=== PATIENT | male | born 1985 | race African-American/Black ===

== ENCOUNTER 2018-08-09 17:49 | Emergency (ER) | payer OTHER ==
[~2018-08-09] VITALS: Ht 182.9 cm; Wt 155.1 kg
[~2018-08-09 17:49] MED LIST: CARISOPRODOL 3350 MG PO; IBUPROFEN 800800 M1 PO; NORCO 5-325 TA1 EACH PO; ULTRAM 50MG TAB50 MG PO
[2018-08-09 19:23] LABS: CALCIUM 9.1 mg/dL (8.5-10.1); CREATININE 1.1 mg/dL (0.7-1.3); POTASSIUM 3.9 mmol/L (3.5-5.1)
[2018-08-09] MEDS ORDERED: NORCO 10-325 T1 EACH PO (21:21)
[2018-08-09] MEDS ORDERED: CRUTCHES MISCELL (21:25)
[2018-08-09 22:08] VITALS: BP 109/64
== END 2018-08-09 22:10 | disposition home or self-care (01) ==
LOC: ER 17:49
PROVIDERS: Physician Assistant
DX: S89.82XA Other specified injuries of left lower leg, initial encounter (principal); J45.909 Unspecified asthma, uncomplicated; W01.0XXA Fall on same level from slipping, tripping and stumbling without subsequent striking against object, initial encounter; Y92.89 Other specified places as the place of occurrence of the external cause; Y93.61 Activity, american tackle football; Y99.8 Other external cause status

== ENCOUNTER 2018-10-10 10:31 | Inpatient (IN) | payer OTHER ==
[~2018-10-10] VITALS: Ht 185.4 cm; Wt 160.1 kg
[~2018-10-10 10:31] MED LIST changes: +CRUTCHES MISCELL; +NORCO 10-325 T1 EACH PO
[2018-10-10 10:32] VITALS: BP 154/88
[2018-10-10 10:57] LABS: ABSOLUTE NEUTROPHILS 9.1 thou/uL (1.4-8.2); BASOPHILS 0.6 % (0.0-2.0); EOSINOPHILS 2.7 % (0.0-3.0); HEMATOCRIT 41.3 % (42.0-52.0); HEMOGLOBIN 13.8 gm/dL (14.0-18.0); LYMPHOCYTES 10.5 % (24.0-44.0); MCH 25.5 pg (26.0-34.0); MCHC 33.5 g/dL (28.0-37.0); MONOCYTES 10.4 % (1.0-8.0); PLATELET COUNT 231 thou/uL (150-400); POLYS 75.8 % (36.0-66.0); RBC 5.43 mil/uL (4.50-6.00)
[2018-10-10] MEDS ORDERED: VENTOLIN HFA 1818 GM INH (11:01)
[2018-10-10 11:08] LABS: CALCIUM 9.1 mg/dL (8.5-10.1); CREATININE 1.3 mg/dL (0.7-1.3); POTASSIUM 3.9 mmol/L (3.5-5.1)
[2018-10-10 11:13] LABS: ALBUMIN 3.9 g/dL (3.4-5.0); TOTAL BILIRUBIN 0.3 mg/dL (<0.1-1.0); TOTAL PROTEIN 8.1 g/dL (6.4-8.2)
[2018-10-10 13:53] VITALS: BP 164/97
[2018-10-10 16:50] VITALS: BP 155/68
[2018-10-10 16:56] VITALS: BP 144/86
--- NOTE | 2018-10-10 17:38 | NUR ---
PT ARRIVED TO THE UNIT AT APPROX 1645 BY ER STAFF WITH ALL BELONGINGS. PT ALERT AND ORIENTED, VSS, 3L O2. PT UP SBA, STEADY GAIT. ADMISSION COMPLETED, TELE PUT ON, ADMIT STRIP PRINTED AND DOCUMENTED. PT C/O PAIN IN CHEST FROM COUGHING, WILL MANAGE PER ORDERS. PT DENIES CONCERNS AT THIS TIME. WILL ACKNOWLEDGE AND IMPLEMENT FURTHER ORDERS. CONTINUING TO MONITOR.
--- NOTE | 2018-10-10 18:55 | NUR ---
PT CONTINUES TO BE ALERT AND ORIENTED, VSS, C/O PAIN, WILL MANAGE WITH MEDS PER JUL. COUGH MED ORDERED PER PHYSICIAN TO MANAGE COUGH. O2 SATS WNL ON 3L, NO S/SX OF CARD OR RESP DISTRESS NOTED. PT SAFETY INFO REGARDING TELEMETRY INTERFERENCE DISCUSSED WITH PT, COMMUNICATES UNDERSTANDING. PT DENIES CONCERNS AT THIS TIME. WILL CONTINUE TO MONITOR AND FOLLOW POC.
[2018-10-10 20:00] VITALS: BP 138/75
[2018-10-11 00:09] VITALS: BP 170/75
[2018-10-11 04:00] VITALS: BP 160/68
--- NOTE | 2018-10-11 05:50 | NUR ---
PATIENT ALERT AND ORIENTED X4. C/O PAIN IN CHEST AND UPPER ABD FROM COUGHING. HAS GENERALIZED EDEMA. UP TO BATHROOM BY SELF. SLEPT OFF AND ON DURING NIGHT.
[2018-10-11 07:50] VITALS: BP 149/77
[2018-10-11 11:35] VITALS: BP 151/101
[2018-10-11 15:45] VITALS: BP 146/98
[2018-10-11 20:00] VITALS: BP 157/69
[2018-10-12 05:09] LABS: HEMATOCRIT 39.1 % (42.0-52.0); MCH 25.5 pg (26.0-34.0); MCHC 33.2 g/dL (28.0-37.0); MCV 76.8 fL (80.0-100.0); RBC 5.09 mil/uL (4.50-6.00); RDW 14.3 % (10.5-14.5)
--- NOTE | 2018-10-12 06:19 | NUR ---
Pt rested well through the night and no changes observed. PRN tramadols and fentanyl given for c/o chest "soreness" with desired effects achieved. Pt up to the bathroom without difficulty and no BM observed this shift. Am lab results noted, continue with POC.
[2018-10-12 07:55] VITALS: BP 173/88
--- NOTE | 2018-10-12 10:55 | EKG ---
[place] [address] [facility] [employer] [place] [address] ELECTROCARDIOGRAM REPORT Name: DENA GILLILAND Room #: 205-P ADM IN M.R.#: [id number] ������������������ Admission: 10/10/18 ������������������ Attend Phys: Van Arriola MD Discharge: ������������������ Date of : 89 Report #: [id number] ����������������������������������������������������������������� [id number] THIS REPORT FOR: //name// [facility] ED Test Date: 2018-10-10 Test Time: 11:40:03 Pat Name: DENA GILLILAND Department: Room: [facility] Gender: M Clinical Pharmacologist: SANDRA : 1985 Requested By: Alban Nye Order Number: [id number] MD: Bennie Enriquez Measurements Intervals [place] Rate: 112 P: 57 [place]: 163 QRS: 106 QRSD: 98 T: 21 QT: 326 QTc: 445 Interpretive Statements Sinus tachycardia Right axis deviation Poor R wave progression Repolarization abnormality, possibly early repolarization No previous ECG available for comparison Electronically Signed On 10-12-2018 10:55:12 CDT by Bennie Enriquez [email or web address] ��������������������������������������������� <ELECTRONICALLY SIGNED> ���������������������������������������� By: Bennie Enriquez MD, [facility] ��������������������������������������������� 10/12/18 1055 1140 1140 Bennie Enriquez MD, [facility] /EPI
--- NOTE | 2018-10-12 10:57 | EKG ---
[address] [address] ELECTROCARDIOGRAM REPORT Name: DENA GILLILAND Room #: 205-P ADM IN M.R.#: [id number] ������������������ Admission: 10/10/18 ������������������ Attend Phys: Van Arriola MD Discharge: ������������������ Date of : 89 Report #: [id number] ����������������������������������������������������������������� [id number] THIS REPORT FOR: //name// [facility] ED Test Date: 2018-10-10 Test Time: 12:28:06 Pat Name: DENA GILLILAND Department: Room: [facility] Gender: M Client Consultant: vernon : 1985 Requested By: Dc Adan Order Number: [id number] MD: Bennie Enriquez Measurements Intervals [place] Rate: 102 P: 48 [place]: 163 QRS: 96 QRSD: 101 T: 9 QT: 334 QTc: 436 Interpretive Statements Sinus tachycardia Poor R wave progression Borderline right axis deviation Repolarization abnormality No previous ECG available for comparison Electronically Signed On 10-12-2018 10:56:54 CDT by Bennie Enriquez [email or web address] ��������������������������������������������� <ELECTRONICALLY SIGNED> ���������������������������������������� By: Bennie Enriquez MD, [facility] ��������������������������������������������� 10/12/18 1056 1228 27 Bennie Enriquez MD, FACC /EPI
[2018-10-12 11:55] VITALS: BP 138/91
[2018-10-12 15:50] VITALS: BP 183/93
--- NOTE | 2018-10-12 18:11 | NUR ---
ASSUMED CARE OF PT AT SHIFT CHANGE. ASSESSMENTS CHARTED. MEDS GIVEN PER JUL. PT ALERT AND ORIENTED, UP AD [place], C/O CHEST PAIN FROM COUGHING- MANAGED WITH PO PAIN MEDS. O2 SATS WNL ON ROOM AIR, 3L O2 PRN AVAILABLE AT BEDSIDE. NO S/SX OF CARD OR RESP DISTRESS NOTED. PT DENIES CONCERNS AT THIS TIME. WILL CONT TO MONITOR AND FOLLOW POC.
[2018-10-12 19:57] VITALS: BP 108/101
[2018-10-12 22:14] VITALS: BP 144/77
[2018-10-13 00:46] VITALS: BP 147/73
--- NOTE | 2018-10-13 03:32 | NUR ---
ASSUMED PT CARE AT 1900. VSS. PT A&0X4, COMPLAINED OF SOME NON CARDIAC CHEST PAIN THAT OCCURS AFTER COUGHING, PAIN MED ADMINISTERED AFTER WHICH PT SLEEPS FOR A COUPLE HOURS. PT'S BP HAS BEEN RUNNING HIGH SINCE ADMITTED, BP WAS HIGH AGAIN TONIGHT AT 168/102 AND 178/104 WHEN RECHECKED. JOYCE LIAO NOTIFIED, ONETIME ORDER OF HYDRALIZINE ADMINISTERED, BP CAME DOWN TO 144/77 AND THEN IT WAS 147/73 TWO HOURS LATER. PT IS STABLE. NO FURTHER COMPLAINTS. WILL CONTINUE TO MONITOR PER POC.
[2018-10-13 05:28] VITALS: BP 133/66
[2018-10-13 07:50] VITALS: BP 174/83
[2018-10-13 09:37] VITALS: BP 166/101
--- NOTE | 2018-10-13 15:13 | NUR ---
ASSUMED CARE OF PT AT SHIFT CHANGE. ASSESSMENT CHARTED. MEDS GIVEN PER JUL. PT ALERT AND ORIENTED, VSS EXCEPT FOR BP ELEVATED- PROVIDER NOTIFIED, ORDERS RECEIVED. PT C/O PAIN IN CHEST AREA FROM COUGHING. MANAGED WITH PO PAIN MEDS. PT WALKED AROUND UNIT SEVERAL TIMES THIS SHIFT. AT APPRXO 1520 PT BEGAN TO FEEL MORE PAIN IN CHEST FROM COUGHING AND SOB. O2 PUT ON AT 3L, PAIN MEDS ADMINISTERED. PT REPORTS O2 AND PAIN MEDS HELPING. NO CONCEERNS AT THIS TIME. WILL CONTINUE TO MONITOR PT AND BREATHING, FOLLOWING POC.
[2018-10-13 15:50] VITALS: BP 151/74
[2018-10-13 22:59] VITALS: BP 150/93
--- NOTE | 2018-10-14 03:56 | NUR ---
ASSUMED PT CARE AT 1900. PT A/OX4, VITAL SIGNS STABLE, ASSESSMENT CHARTED. NON-CRDIAC CHEST PIAN ADEQAUTELY MANAGED WITH PAIN MEDICATION. PT WALKED THE HALLS, TOLERATED ACTIVITY APPROPRIATELY. PT RESTED WELL THROUGH THE NIGHT. PROGRESSING TOWARD PLAN OF CARE, POSSIBLE DISCHARGE IN AM. WILL CONTINUE TO MONITOR.
[2018-10-14 04:34] VITALS: BP 133/74
[2018-10-14 08:00] VITALS: BP 146/93
--- NOTE | 2018-10-14 09:35 | NUR ---
PT RESTING IN BED WAS UP IN BEDSIDE CHAIR.HAS NON CARDIAC CHEST PAIN GIVEN PRN PAIN MED. STATES DOES NOT REALLY EAT BREAKFAST WAS GOING TO LIE DOWN TAKE A REST. TOOK AM MEDS IV ABT INFUSING ORDERED.
[2018-10-14] MEDS ORDERED: DOXYCYCLINE HYC50 MG PO (10:25)
[2018-10-14] MEDS ORDERED: PULMICORT0.5 MG/21 INH (10:26)
[2018-10-14] MEDS ORDERED: PREDNISONE 10 M10 MG PO (10:27)
[2018-10-14 10:40] VITALS: BP 146/93
[2018-10-14 11:01] VITALS: BP 146/93
[2018-10-14 11:28] VITALS: BP 146/93
--- NOTE | 2018-10-14 11:30 | NUR ---
PT TO DISCHARGE TO HOME.DISCHARGE PAPERS GONE OVER SIGNED AND COPY IN CHART.IV ACSESS DCD AND TELE MONITOR REMOVED. ALL BELONGINS PACKED AND SENT WITH PATIENT. RX'S SENT WITH PATIENT. PT TO BE TAKEN TO ER ENTRANCE BY VOLUNTEER, PT DROVE SELF. PT W/O PAIN OR RESP DISTRESS AT DISCHARGE.
== END 2018-10-14 11:30 | disposition home or self-care (01) | DRG 189 ==
LOC: ER 10:31 → EROBS 14:17 → 2N 14:17
PROVIDERS: Physician Assistant; ADMIT Internal Medicine
DX: J96.00 Acute respiratory failure, unspecified whether with hypoxia or hypercapnia (principal); J45.902 Unspecified asthma with status asthmaticus; J45.901 Unspecified asthma with (acute) exacerbation; J01.90 Acute sinusitis, unspecified; I10 Essential (primary) hypertension; Z79.1 Long term (current) use of non-steroidal anti-inflammatories (NSAID); Z79.899 Other long term (current) drug therapy
CPT/HCPCS: 10081

== ENCOUNTER 2019-02-12 16:52 | Emergency (ER) | payer OTHER ==
[~2019-02-12] VITALS: Ht 182.9 cm; Wt 145.2 kg
[~2019-02-12 16:52] MED LIST changes: +DOXYCYCLINE HYC50 MG PO; +PREDNISONE 10 M10 MG PO; +PULMICORT0.5 MG/21 INH; +VENTOLIN HFA 1818 GM INH
[2019-02-12] MEDS ORDERED: ADVAIR 100-501 EACH INH (17:01)
[2019-02-12] MEDS ORDERED: MOBIC7.5 MG PO (17:56)
[2019-02-12 19:02] VITALS: BP 150/107
== END 2019-02-12 19:03 | disposition home or self-care (01) ==
LOC: ER 16:52
DX: M17.11 Unilateral primary osteoarthritis, right knee (principal); J45.909 Unspecified asthma, uncomplicated

== ENCOUNTER 2019-04-21 14:00 | Emergency (ER) | payer OTHER ==
[~2019-04-21] VITALS: Ht 205.7 cm; Wt 147.0 kg
[~2019-04-21 14:00] MED LIST changes: +ADVAIR 100-501 EACH INH; +MOBIC7.5 MG PO
[2019-04-21 14:52] LABS: HEMATOCRIT 38.7 % (42.0-52.0); HEMOGLOBIN 12.6 gm/dL (14.0-18.0); MCH 24.7 pg (26.0-34.0); MCHC 32.6 g/dL (28.0-37.0); MCV 75.9 fL (80.0-100.0); PLATELET COUNT 242 thou/uL (150-400); RDW 14.5 % (10.5-14.5); WBC 26.9 thou/uL (4.0-11.0)
[2019-04-21 15:00] LABS: CALCIUM 9.7 mg/dL (8.5-10.1); CREATININE 1.2 mg/dL (0.7-1.3); POTASSIUM 3.8 mmol/L (3.5-5.1)
[2019-04-21 15:06] LABS: ALBUMIN 3.2 g/dL (3.4-5.0); DIRECT BILIRUBIN 0.2 mg/dL (<0.1-0.2); TOTAL BILIRUBIN 0.8 mg/dL (<0.1-1.0); TOTAL PROTEIN 8.4 g/dL (6.4-8.2)
[2019-04-21 16:18] LABS: ABSOLUTE NEUTROPHILS 21.8 thou/uL (1.4-8.2); ANISOCYTOSIS SLIGHT
[2019-04-21] MEDS ORDERED: GUAIFEN-CODEINE10 ML PO (17:12)
[2019-04-21 17:27] VITALS: BP 123/73
== END 2019-04-21 17:28 | disposition home or self-care (01) ==
LOC: ER 14:00
PROVIDERS: Emergency Medicine
DX: J06.9 Acute upper respiratory infection, unspecified (principal); B34.9 Viral infection, unspecified; R11.10 Vomiting, unspecified; R10.9 Unspecified abdominal pain; R07.89 Other chest pain; J45.909 Unspecified asthma, uncomplicated; Z90.49 Acquired absence of other specified parts of digestive tract

== ENCOUNTER 2020-04-14 00:26 | Emergency (ER) | payer OTHER ==
[~2020-04-14] VITALS: Ht 182.9 cm; Wt 149.7 kg
[~2020-04-14 00:26] MED LIST changes: +GUAIFEN-CODEINE10 ML PO
[2020-04-14] MEDS ORDERED: PROMETH-CODEIN 65 ML PO (02:57)
[2020-04-14] MEDS ORDERED: ZOFRAN ODT4 MG PO (02:57)
[2020-04-14] MEDS ORDERED: IBUPROFEN 800800 M1 PO (02:57)
[2020-04-14 04:10] VITALS: BP 153/101
--- NOTE | 2020-04-14 07:23 | EKG ---
[facility] [place] [address] ELECTROCARDIOGRAM REPORT Name: DENA GILLILAND Room #: [facility] [place]#: [id number] Admission: 04/14/20 Attend Phys: Discharge: 04/14/20 Date of : 89 Report #: [id number] THIS REPORT FOR: cc: NO FAMILY PHYSICIAN or PCP NO FAMILY PHYSICIAN or PCP Alexis Gonsalez MD [facility] THIS REPORT FOR: //name// [facility] ED Test Date: 2020-04-14 Test Time: 03:02:38 Pat Name: DENA GILLILAND Department: Room: Gender: Paving Block Cutter: : 1985 Requested By: Dc Adan Order Number: [id number] MD: Alexis Gonsalez Measurements Intervals [place] Rate: 101 P: 59 [place]: 158 QRS: 85 QRSD: 97 T: 21 QT: 340 QTc: 441 Interpretive Statements Sinus tachycardia Probable left atrial enlargement ST elev, probable normal early repol pattern Compared to ECG 10/10/2018 12:28:06 ST (T wave) deviation now present Poor R-wave progression no longer present Early repolarization no longer present Electronically Signed On 04-14-2020 7:23:23 CLINIC SCHEDULER by Alexis Gonsalez [email or web address] <ELECTRONICALLY SIGNED> By: Alexis Gonsalez MD, FACC 04/14/20 0723 1 1 Alexis Gonsalez MD, FACC /EPI
== END 2020-04-14 04:25 | disposition home or self-care (01) ==
LOC: ER 00:26
DX: U07.1 COVID-19 (principal); B34.9 Viral infection, unspecified; J45.909 Unspecified asthma, uncomplicated; Z90.89 Acquired absence of other organs; Z79.899 Other long term (current) drug therapy

== ENCOUNTER 2020-08-05 01:48 | Inpatient (IN) | payer OTHER ==
[~2020-08-05] VITALS: Ht 185.4 cm; Wt 166.7 kg
[2020-08-05] VITALS (9 sets, daily range): BP systolic 104–129; BP diastolic 58–91
[~2020-08-05 01:48] MED LIST changes: +PROMETH-CODEIN 65 ML PO; +ZOFRAN ODT4 MG PO
[2020-08-05] MEDS ORDERED: SUBOXONE 8 MG-1 EAC3 SUBLING (01:57)
[2020-08-05] MEDS ORDERED: PROAIR HFA8.5 GM INH (01:57)
[2020-08-05 02:21] LABS: URINE BILIRUBIN NEGATIVE (Negative); URINE BLOOD 2+ (Negative); URINE CLARITY CLEAR; URINE COLOR YELLOW; URINE GLUCOSE-RANDOM* 3+ (Negative); URINE KETONES NEGATIVE (Negative); URINE LEUKOCYTES-REFLEX TRACE (Negative); URINE NITRITE-REFLEX NEGATIVE (Negative); URINE PROTEIN (DIPSTICK) 2+ (Negative); URINE SPECIFIC GRAVITY 1.025 (1.005-1.035); URINE UROBILINOGEN 0.2 E.U./dl (0.2-1.0)
[2020-08-05 02:27] LABS: BASOPHILS 0.4 % (0.0-2.0); EOSINOPHILS 1.9 % (0.0-3.0); HEMATOCRIT 40.8 % (42.0-52.0); HEMOGLOBIN 12.9 gm/dL (14.0-18.0); LYMPHOCYTES 26.5 % (24.0-44.0); MCH 24.5 pg (26.0-34.0); MCHC 31.6 g/dL (28.0-37.0); MCV 77.5 fL (80.0-100.0); MONOCYTES 4.6 % (1.0-8.0); PLATELET COUNT 286 thou/uL (150-400); POLYS 66.6 % (36.0-66.0); RBC 5.27 mil/uL (4.50-6.00); RDW 14.4 % (10.5-14.5)
[2020-08-05 02:30] LABS: ANION GAP 16 mmol/L (7-16); BUN 18 mg/dL (7-18); CALCIUM 8.4 mg/dL (8.5-10.1); CHLORIDE 98 mmol/L (98-107); CO2 24 mmol/L (21-32); CREATININE 2.5 mg/dL (0.7-1.3); GLUCOSE 416 mg/dL (74-106); POTASSIUM 3.9 mmol/L (3.5-5.1); SODIUM 138 mmol/L (136-145)
[2020-08-05 02:31] LABS: AMP/METHAMP Negative (Negative); BARBITURATES Negative (Negative); BENZODIAZEPINES Negative (Negative); COCAINE Negative (Negative); METHADONE Negative (Negative); OPIATES POSITIVE (Negative); PCP Negative (Negative)
[2020-08-05 02:41] LABS: ALBUMIN 3.4 g/dL (3.4-5.0); AMYLASE 56 U/L (25-115); DIRECT BILIRUBIN 0.1 mg/dL (<0.1-0.2); LIPASE 100 U/L (73-393); SGOT 24 U/L (15-37); SGPT 29 U/L (30-65); TOTAL BILIRUBIN 0.2 mg/dL (0.2-1.0); TOTAL PROTEIN 7.5 g/dL (6.4-8.2); TROPONIN-I <0.06 ng/mL (<0.06)
[2020-08-05 02:49] LABS: BACTERIA-REFLEX 1-9 Few /HPF (None Seen); CASTS None Seen /LPF (None Seen); CRYSTALS None Seen /LPF (None Seen); MUCUS 0-3 Light strn/LPF (None Seen); SQUAMOUS 0-3 Few /LPF (0-3); URINE WBC-REFLEX 6-15 Few /HPF (0-5)
[2020-08-05 02:57] LABS: SALICYLATE < 2.8 mg/dL (2.8-20.0)
--- NOTE | 2020-08-05 07:13 | EKG ---
[address] [address] ELECTROCARDIOGRAM REPORT Name: DENA GILLILAND Room #: 361-P ADM IN M.R.#: [id number] Admission: 08/05/20 Attend Phys: Jamel Boyd MD Discharge: Date of : 89 Report #: [id number] [facility] ED Test Date: 2020-08-05 Test Time: 02:02:11 Pat Name: DENA GILLILAND Department: Room: [facility] Gender: M Sale Professional Digital Marketing: margaret gasca : 1985 Requested By: Cesar Santoyo Order Number: [id number] MD: Alexis Gonsalez Measurements Intervals [place] Rate: 115 P: 59 [place]: 158 QRS: 95 QRSD: 110 T: 12 QT: 347 QTc: 480 Interpretive Statements Sinus tachycardia Borderline right axis deviation Borderline prolonged QT interval Compared to ECG 04/14/2020 03:02:38 ST (T wave) deviation no longer present Electronically Signed On 08-05-2020 7:13:19 CDT by Alexis Gonsalez [email or web address] <ELECTRONICALLY SIGNED> By: Alexis Gonsalez MD, [facility] 08/05/20712 1 1 Alexis Gonsalez MD, [facility] /EPI
[2020-08-05 11:04] LABS: HEMATOCRIT 38.6 % (42.0-52.0); HEMOGLOBIN 12.3 gm/dL (14.0-18.0); MCH 24.2 pg (26.0-34.0); MCHC 31.9 g/dL (28.0-37.0); RBC 5.08 mil/uL (4.50-6.00); RDW 14.3 % (10.5-14.5); WBC 12.8 thou/uL (4.0-11.0)
[2020-08-05 11:12] LABS: CALCIUM 8.1 mg/dL (8.5-10.1); POTASSIUM 4.2 mmol/L (3.5-5.1)
[2020-08-05 11:13] LABS: CREATININE 1.5 mg/dL (0.7-1.3)
[2020-08-06 04:13] VITALS: BP 144/61
[2020-08-06 04:59] LABS: HEMATOCRIT 36.6 % (42.0-52.0); HEMOGLOBIN 11.7 gm/dL (14.0-18.0); MCH 24.6 pg (26.0-34.0); MCHC 31.9 g/dL (28.0-37.0); MCV 77.1 fL (80.0-100.0); RBC 4.75 mil/uL (4.50-6.00); RDW 14.5 % (10.5-14.5); WBC 8.8 thou/uL (4.0-11.0)
[2020-08-06 05:09] LABS: CREATININE 1.5 mg/dL (0.7-1.3); PHOSPHORUS 4.7 mg/dL (2.6-4.7); POTASSIUM 4.2 mmol/L (3.5-5.1)
[2020-08-06 20:15] VITALS: BP 142/99
[2020-08-07 03:58] VITALS: BP 135/89
[2020-08-07 04:42] LABS: ALBUMIN 3.2 g/dL (3.4-5.0); CALCIUM 8.2 mg/dL (8.5-10.1); CREATININE 1.3 mg/dL (0.7-1.3); PHOSPHORUS 3.8 mg/dL (2.6-4.7); POTASSIUM 4.4 mmol/L (3.5-5.1)
[2020-08-07 07:48] VITALS: BP 143/82
[2020-08-07] MEDS ORDERED: PROTONIX 20 MG20 M1 PO (09:24)
[2020-08-07 11:25] VITALS: BP 156/104
== END 2020-08-07 15:52 | disposition home or self-care (01) | DRG 918 ==
LOC: ER 01:48 → EROBS 03:04 → 3W 04:27
PROVIDERS: Emergency Medicine; Hospitalist; ADMIT Hospitalist; ATTEND Hospitalist
DX: T40.2X1A Poisoning by other opioids, accidental (unintentional), initial encounter (principal); N30.01 Acute cystitis with hematuria; J45.909 Unspecified asthma, uncomplicated; N17.9 Acute kidney failure, unspecified; E86.0 Dehydration; D72.829 Elevated white blood cell count, unspecified; F17.220 Nicotine dependence, chewing tobacco, uncomplicated; F39 Unspecified mood [affective] disorder; K21.9 Gastro-esophageal reflux disease without esophagitis; Y92.89 Other specified places as the place of occurrence of the external cause; Z81.8 Family history of other mental and behavioral disorders
CPT/HCPCS: 10879